=== PATIENT | female | born 1950 | race American Indian/Alaskan Native ===

== ENCOUNTER 2021-10-12 15:37 | Outpatient (CLI) | payer MEDICARE, OTHER | END 2021-10-12 15:38 | disposition home or self-care (01) | LOC: LAB 15:37 | PROVIDERS: ATTEND Specialist | DX: D51.9 Vitamin B12 deficiency anemia, unspecified (principal); G45.9 Transient cerebral ischemic attack, unspecified | CPT/HCPCS: 36415; 82607; 83921 ==